=== PATIENT | male | born 1960 | race Two or more races ===

== ENCOUNTER 2024-03-02 15:20 | Inpatient (IN) | payer OTHER ==
[~2024-03-02] VITALS: Ht 175.3 cm; Wt 68.0 kg
[2024-03-02] MEDS ORDERED: COMPANION TABL0.4 MG (15:47)
[2024-03-02] MEDS ORDERED: ELIQUIS5 MG (15:47)
[2024-03-02] MEDS ORDERED: CALCIUM CITRAT250 MG (15:47)
[2024-03-02] MEDS ORDERED: COLACE100 MG (15:47)
[2024-03-02] MEDS ORDERED: ANUSOL-HC30 G2 (15:47)
[2024-03-02] MEDS ORDERED: VRAYLAR3 MG (15:48)
[2024-03-02] MEDS ORDERED: METAMUCIL POWD575 G1 (15:48)
[2024-03-02] MEDS ORDERED: GUAIFENESIN/DEXTROMETHORPHAN 10ML BLIST.PACK PO ONE ×3 (16:30→20:21)
[2024-03-02] MEDS ORDERED: METHYLPREDNISOLONE SOD SUCC 125 MG VIAL IV ONE (16:30)
[2024-03-02] MEDS ORDERED: LEVALBUTEROL HCL 1.25 MG/3 ML SOLUTION IH SCH (16:30)
[2024-03-02] MEDS ORDERED: METHYLPREDNISOLONE SOD SUCC 125 MG VIAL ONE (16:40)
[2024-03-02 17:07] LABS: HEMATOCRIT 27.9 % (39.0-48.0); MEAN CELL VOLUME 96.9 fL (80.0-100.00); MEAN CORPUSCULAR HEMOGLOBIN 31.3 pg (27.00-32.0); MEAN CORPUSCULAR HGB CONC 32.3 g/dl (32.0-36.0); RED BLOOD COUNT 2.88 M/uL (4.00-6.00)
[2024-03-02] MEDS ORDERED: LEVALBUTEROL HCL 1.25 MG/3 ML SOLUTION IH ONE (17:14)
[2024-03-02] MEDS ORDERED: OSELTAMIVIR PHOSPHATE 75 MG CAPSULE PO ONE ×2 (17:19→17:30)
[2024-03-02 17:47] LABS: PLATELET COUNT 33 K/uL (150-450)
[2024-03-02 18:49] LABS: ABG PH 7.415 (7.35-7.45); ABG PO2 71.2 mmHg (80-100); ABG pCO2 33.4 mmHg (35-45); BASE EXCESS -2.7 mmol/l; BICARBONATE 20.9 mmol/l (23-25); SaO2 94.2 %; o2 21 %
[2024-03-02 18:50] LABS: allen test SATISFACTORY; puncture site RADIAL RIGHT
[2024-03-02 18:52] LABS: INR 1.31
[2024-03-02 18:54] LABS: ALBUMIN 1.8 gm/dL (3.4-5.0); BILIRUBIN TOTAL 0.63 mg/dL (0.3-1.2); CALCIUM 8.2 mg/dL (8.5-10.1); CREATININE SERUM 1.53 mg/dL (0.70-1.30); GFR 46.5; GLOBULINA 4.3 G/DL (2.4-3.5); POTASSIUM 3.97 mEq/L (3.5-5.1); TOTAL PROTEIN 6.1 gm/dL (6.4-8.2)
[2024-03-02 19:07] LABS: PARTIAL THROMBOPLASTIN TIME 40.7 SECONDS (22.0-34.0)
[2024-03-02] MEDS ORDERED: IPRATROPIUM BROMIDE 0.5 MG/2.5 ML AMPUL.NEB IH SCH (19:52)
[2024-03-02] MEDS ORDERED: PIPERACILLIN/TAZOBACTAM SODIUM 3.375 GM in DEXTROSE 5 % IN WATER 100 ML IV SCH (19:57)
[2024-03-02] MEDS ORDERED: ACETAMINOPHEN 500 MG GEL..CAP PO PRN (20:00)
[2024-03-02] MEDS ORDERED: 0.9 % SODIUM CHLORIDE 1,000 ML IV SCH (20:00)
[2024-03-02] MEDS ORDERED: PIPERACILLIN/TAZOBACTAM SODIUM 3.375 GM VIAL IV ONE (20:21)
[2024-03-02] MEDS ORDERED: GUAIFEN/DEXTROMETHORPHAN/PE 10 ML BLIST.PACK PO SCH (21:00)
[2024-03-02] MEDS ORDERED: METHYLPREDNISOLONE SOD SUCC 40 MG VIAL IV SCH (21:00)
[2024-03-02 21:44] VITALS: BP 104/68; O2SAT 99
[2024-03-02 22:32] VITALS: O2SAT 98
[2024-03-02 22:42] VITALS: BP 149/54
[2024-03-03] VITALS (9 sets, daily range): BP systolic 111–131; BP diastolic 72–76; O2SAT 95–99
[2024-03-03 08:06] LABS: MEAN CELL VOLUME 96.7 fL (80.0-100.00); MEAN CORPUSCULAR HGB CONC 32.7 g/dl (32.0-36.0); RED CELL DISTRIBUTION WIDTH 22.4 % (11.5-14.5)
[2024-03-03] MEDS ORDERED: PANTOPRAZOLE SODIUM 40 MG/VIAL VIAL IV SCH (09:00)
[2024-03-03] MEDS ORDERED: IRON FUM,PS/FOLIC/BCOMP,C NO.9 1 CAP CAPSULE PO SCH (09:00)
[2024-03-03] MEDS ORDERED: DOCUSATE SODIUM 100MG CAP PO SCH (09:00)
[2024-03-03] MEDS ORDERED: PSYLLIUM HUSK 1 PKT PACKET PO SCH (09:00)
[2024-03-03] MEDS ORDERED: OSELTAMIVIR PHOSPHATE 75 MG CAPSULE PO SCH (09:00)
[2024-03-03 09:24] LABS: HEMATOCRIT 22.3 % (39.0-48.0); MEAN CORPUSCULAR HEMOGLOBIN 31.7 pg (27.00-32.0)
[2024-03-03 09:25] LABS: HEMOGLOBIN 7.3 g/dL (13-16.00); PLATELET COUNT 66 K/uL (150-450)
[2024-03-03] MEDS ORDERED: FILGRASTIM-AAFI 300 MCG/0.5 ML SYRINGE SUBCUTANEO NR (09:30)
[2024-03-03 15:32] LABS: MEAN CELL VOLUME 95.1 fL (80.0-100.00); MEAN CORPUSCULAR HGB CONC 33.4 g/dl (32.0-36.0); RED BLOOD COUNT 2.42 M/uL (4.00-6.00); RED CELL DISTRIBUTION WIDTH 22.8 % (11.5-14.5)
[2024-03-03 15:41] LABS: MEAN CORPUSCULAR HEMOGLOBIN 31.8 pg (27.00-32.0)
[2024-03-03 16:02] LABS: PLATELET COUNT 64 K/uL (150-450)
[2024-03-03 16:04] LABS: HEMATOCRIT 23.1 % (39.0-48.0); HEMOGLOBIN 7.7 g/dL (13-16.00)
[2024-03-03] MEDS ORDERED: APIXABAN 5 MG TABLET PO SCH (17:00)
[2024-03-03] MEDS ORDERED: OSELTAMIVIR PHOSPHATE 30MG CAP PO SCH (17:00)
[2024-03-04 00:06] VITALS: O2SAT 96
[2024-03-04 00:53] VITALS: BP 100/60; O2SAT 97
[2024-03-04 06:34] LABS: MEAN CELL VOLUME 94.5 fL (80.0-100.00); MEAN CORPUSCULAR HGB CONC 33.9 g/dl (32.0-36.0); RED BLOOD COUNT 2.27 M/uL (4.00-6.00); RED CELL DISTRIBUTION WIDTH 22.7 % (11.5-14.5)
[2024-03-04 07:05] LABS: HEMATOCRIT 21.5 % (39.0-48.0); MEAN CORPUSCULAR HEMOGLOBIN 32.1 pg (27.00-32.0)
[2024-03-04 07:06] LABS: HEMOGLOBIN 7.3 g/dL (13-16.00); PLATELET COUNT 48 K/uL (150-450)
[2024-03-04 08:42] VITALS: BP 131/77
[2024-03-04 09:10] VITALS: O2SAT 98
[2024-03-04 12:33] VITALS: O2SAT 98
[2024-03-04 12:40] LABS: ABG PH 7.375 (7.35-7.45); ABG PO2 82.9 mmHg (80-100); ABG pCO2 33.1 mmHg (35-45); BASE EXCESS -5.2 mmol/l; BICARBONATE 18.9 mmol/l (23-25); SaO2 95.6 %; allen test SATISFACTORY; o2 21 %; puncture site RADIAL RIGHT
== END 2024-03-04 13:42 | disposition left against medical advice (07) | DRG 813 ==
LOC: ER 15:23 → MEDJ 20:25
PROVIDERS: General Practice; Internal Medicine; ADMIT Internal Medicine; ATTEND Internal Medicine
PROC: 4A12X4Z Monitoring of Cardiac Electrical Activity, External Approach (ICD-10-PCS; principal; 2024-03-02)
PROC: 30233N1 Transfusion of Nonautologous Red Blood Cells into Peripheral Vein, Percutaneous Approach (ICD-10-PCS; 2024-03-03)
DX: D69.6 Thrombocytopenia, unspecified (principal); A41.9 Sepsis, unspecified organism; D61.810 Antineoplastic chemotherapy induced pancytopenia; N17.9 Acute kidney failure, unspecified; D84.9 Immunodeficiency, unspecified; D70.9 Neutropenia, unspecified; J10.1 Influenza due to other identified influenza virus with other respiratory manifestations; Z85.038 Personal history of other malignant neoplasm of large intestine